=== PATIENT | female | born 1990 | race African-American/Black ===

== ENCOUNTER → 2016-10-18 | Emergency (ER) | payer OTHER ==
[~2016-10-18] MED LIST: ACETAMINOPHEN 325 MG TABLET (FP) ONE; ACETAMINOPHEN 325 MG TABLET (FP) PO ONE
--- NOTE | 2016-10-18 01:48 | PDOC ---
Suture Removal/Wound Check HPI - History of Present Illness Chief Complaint: Laceration Stated Complaint: BLEEDING - ARM STITCHES Time Seen by Provider: 10/18/16 01:32 History Source: Yes: Patient Treated at: Other ED ([facility] ED on 10/17/2013) Date of Last ED visit: 10/17/16 - Previous ED Treatment Type of procedure performed on last visit: Yes: Laceration Repair Tetanus Immunization: Yes: Last Tetanus <5 years ago Antibiotics Prescribed: No - Onset of Previous Treatment Timing/Duration/Severity of Onset: reports: Prior to presentation Comment:: 10/18/16 01:47 s/p laceration repair to right forearm yesterday in [facility] ER. today noted to have bleeding . wound assessed no evisceration noted. pressure dressing applied. Past History - Past Medical History Allergies/Adverse Reactions: Allergies No Known Allergies Allergy (Verified 03/31/13 13:28) Home Medications: Ambulatory Orders NK [No Known Home Medication] 05/20/16 Surgical History: Yes: No Surgical History - Reproductive History LMP: 02/01/13 : 1 Para: 1 Spontaneous : 0 Tubal Ligation: No Hx Endometriosis: No Hx PID: No Hx Polycystic Ovaries: No Hx Ectopic : No Hx Cervical Cancer: No Hx Dysfunctional Uterine Bleeding: No Hx Ovarian Cancer: No Hx Endometrial Cancer: No - Immunization History Immunizations Up to Date: Yes Tetanus Status: Less than 5 years - Social History Smoking History: Yes Smoking Status: Current some day smoker Number of Ciarettes Per Day: 0 Alcohol Use: none Drug Use: none Suture Removal/Wound Check PE - Physical Exam Laceration/Wound Check Symptoms: reports: Bleeding Comments: 10/18/16 01:49 right forearm sutures bleeding noted in between. Location of Laceration/Wound: right: Forearm *Review of Systems - Review of Systems Able to Perform ROS?: Yes Constitutional: No: Symptoms Reported, See HPI, Chills, Diaphoresis, Fever, Loss of Appetite, Malaise, Night Sweats, Weakness, Weight Stable, Unintentional Wgt. Loss, Unexplained wgt Loss, Other Medical Decision Making - Medical Decision Making 10/18/16 01:51 pressure dressing applied. *DC/Admit/Observation/Transfer Diagnosis at time of Disposition: Laceration of forearm, right Qualifiers: Encounter type: subsequent encounter Qualified Code(s): S51.633G - Laceration without foreign body of right forearm, subsequent encounter - Discharge Dispostion Disposition: HOME - Patient Instructions Printed Discharge Instructions: Laceration Repair Additional Instructions: sutures to be removed in 7-10 days. check wound for increased redness, pain, pus drainage fever. follow up with your doctor in 1-2 days for a wound check.
[2016-10-18 01:58] VITALS: BP 104/71; PULSE 70; TEMP 97.7; BMI 29.2
== END | disposition home or self-care (01) ==
LOC: JER 01:05
DX: S51.811D Laceration without foreign body of right forearm, subsequent encounter (principal); X58.XXXD Exposure to other specified factors, subsequent encounter
CPT/HCPCS: 99281-25

== ENCOUNTER 2017-04-19 00:05 | Emergency (ER) | payer OTHER ==
[2017-04-19 00:19] VITALS: BP 105/75; PULSE 85; TEMP 100.1; BMI 25.7
--- NOTE | 2017-04-19 01:46 | PDOC ---
History of Present Illness - General History Source: Patient - History of Present Illness Initial Comments: 04/19/17 02:21 26-year-old female with no medical history presents to the emergency department with her fianc complaining of left lower second and third molar toothache times one week. Patient states she went to see a dentist 1 week ago and has an appointment with an oral surgeon in 3 days for tooth extraction. Patient denies fever, chills, trismus, difficulty swallowing, neck pains, nausea or vomiting. Pain is described as 6/10 achy nonradiating intermittent discomfort which is exacerbated with cold fluids. Pain is alleviated with Motrin. <Zane Moya - Last Filed: 04/19/17 02:21> <Wesley Anglin - Last Filed: 04/20/17 08:01> - General Chief Complaint: Toothache Stated Complaint: TOOTHACHE Time Seen by Provider: 04/19/17 00:24 Past History - Past Medical History Asthma: Yes - Reproductive History (#): 3 Para: 2 Cervical CA: No Dysfunctional Uterine Bleeding: No Ectopic : No Endometrial CA: No Polycystic Ovaries: No Spontaneous : 0 - Immunization History Td Vaccination: Yes Immunization Up to Date: Yes - Suicide/Smoking/Psychosocial Hx Smoking Status: Yes Smoking History: Never smoked Have you smoked in the past 12 months: No Number of Cigarettes Smoked Daily: 0 Information on smoking cessation initiated: No Hx Alcohol Use: No Drug/Substance Use Hx: No <Zane Moya - Last Filed: 04/19/17 02:21> <Wesley Anglin - Last Filed: 04/20/17 08:01> - Past Medical History Allergies/Adverse Reactions: Allergies Allergy/AdvReac Type Severity Reaction Status Date / Time No Known Allergies Allergy Verified 04/19/17 00:17 Home Medications: Ambulatory Orders Acetaminophen W/ Codeine #3 [Tylenol # 3 -] 1 tab PO Q6H #12 tablet MDD 4 Amoxicillin - [Amoxicillin 500mg Capsule -] 500 mg PO TID #21 capsule 04/19/17 Review of Systems - Review of Systems Able to Perform ROS?: Yes Comments:: 04/19/17 02:22 CONSTITUTIONAL: Absent: fever, chills, diaphoresis, generalized weakness, malaise, loss of appetite HEENT: Absent: rhinorrhea, nasal congestion, throat pain, throat swelling, difficulty swallowing, mouth swelling, ear pain, eye pain, visual Changes +left lower 2nd and 3rd molar toothache Is the patient limited Vincentian proficient: No <Zane Moya - Last Filed: 04/19/17 02:21> *Physical Exam - Vital Signs Last Vital Signs Temp Pulse Resp BP Pulse Ox 100.1 F H 85 20 105/75 99 04/19/17 00:18 04/19/17 00:18 04/19/17 00:18 04/19/17 00:18 04/19/17 00:18 - Physical Exam Comments: 04/19/17 02:22 GENERAL: Well developed, well nourished. Awake and alert. No acute distress. HEENT: +Left lower 2nd and 3rd molar toothache on percussion. Neg abscess Normocephalic, atraumatic. PERRLA, EOMI. No conjunctival pallor. Sclera are non- icteric. Moist mucous membranes. Oropharynx is clear. NECK: Supple. Full ROM. No JVD. Carotid pulses 2+ and symmetric, without bruits. No thyromegaly. No lymphadenopathy. <Zane Moya - Last Filed: 04/19/17 02:21> - Vital Signs Last Vital Signs Temp Pulse Resp BP Pulse Ox 100.1 F H 85 20 105/75 99 04/19/17 00:18 04/19/17 00:18 04/19/17 00:18 04/19/17 00:18 04/19/17 00:18 <Wesley Anglin - Last Filed: 04/20/17 08:01> ED Treatment Course - Medications Given in the ED: ED Medications Discontinued Medications Generic Name Dose Route Start Last Admin Trade Name Freq PRN Reason Stop Dose Admin Amoxicillin 500 mg 04/19/17 02:29 04/19/17 02:37 Amoxicillin - PO 04/19/17 02:30 500 mg ONCE ONE Administration <Wesley Anglin - Last Filed: 04/20/17 08:01> Medical Decision Making - Medical Decision Making 04/20/17 08:01 The patient was seen and evaluated in conjunction with LAVINIA Moya under my direct supervision, ancillary studies were reviewed. I agree with the plan as outlined by LAVINIA Moya. <Wesley Anglin - Last Filed: 04/20/17 08:01> *DC/Admit/Observation/Transfer - Discharge Dispostion Admit: No <Zane Moya - Last Filed: 04/19/17 02:21> <Keven Anglinan - Last Filed: 04/20/17 08:01> Diagnosis at time of Disposition: Toothache - Discharge Dispostion Disposition: HOME Condition at time of disposition: Stable - Prescriptions Prescriptions: Amoxicillin - [Amoxicillin 500mg Capsule -] 500 mg PO TID #21 capsule Acetaminophen W/ Codeine #3 [Tylenol # 3 -] 1 tab PO Q6H #12 tablet MDD 4 - Referrals Referrals: Nils Linares [Primary Care Provider] - - Patient Instructions Printed Discharge Instructions: DI for Dental Pain Additional Instructions: Follow up with your dentist as scheduled for Friday/ days from now Take tylenol or motrin as needed for mild pain Rx: Tylenol #3 take 1 tablet by mouth every 6 hours as needed for severe pain Return to the ER for severe/persistent/worsening symptoms
[2017-04-19] MEDS ORDERED: AMOXICILLIN 500 MG CAPSULE (FP) PO ONE (02:29)
[2017-04-19] MEDS ORDERED: AMOXICILLIN 500 MG CAPSULE (FP) ONE (02:30)
== END 2017-04-19 02:34 | disposition home or self-care (01) ==
LOC: JER 00:05
DX: K08.89 Other specified disorders of teeth and supporting structures (principal)
CPT/HCPCS: 84703; 99281-25

== ENCOUNTER 2017-07-31 18:49 | Emergency (ER) | payer OTHER ==
[2017-07-31] MEDS ORDERED: ACETAMINOPHEN 500 MG TABLET (FP) PO ONE (18:58)
--- NOTE | 2017-07-31 18:58 | PDOC ---
Rapid Medical Evaluation Time Seen by Provider: 07/31/17 18:55 Medical Evaluation: Allergies Allergy/AdvReac Type Severity Reaction Status Date / Time No Known Allergies Allergy Verified 04/19/17 00:17 07/31/17 18:55 I have performed a brief in person evaluation of this patient. The patient presents with chief complaint of : lower abd pain , with vaginal bleeding and clots. started about 25 minutes ago. LMP May. Pertinent PE findings: stable vitals, c/o pain will order tylenol for now until is ruled out I have ordered the following: urine , labs, tylenol The patient will proceed to the ER for further evaluation.
[2017-07-31 18:59] VITALS: BP 116/70; PULSE 84; TEMP 98.5; BMI 30.9
== END 2017-07-31 20:04 | disposition left against medical advice (07) ==
LOC: JER 18:49
DX: R10.30 Lower abdominal pain, unspecified (principal); N93.8 Other specified abnormal uterine and vaginal bleeding
CPT/HCPCS: 84703; 99281-25

== ENCOUNTER 2018-09-26 16:59 | Emergency (ER) | payer OTHER ==
[2018-09-26 17:18] VITALS: BP 104/70; PULSE 80; TEMP 98.2; BMI 31.1
--- NOTE | 2018-09-26 18:00 | PDOC ---
History of Present Illness - General Chief Complaint: Pain Stated Complaint: ABDOMINAL PAIN Time Seen by Provider: 09/26/18 17:40 History Source: Patient Past History - Past Medical History Allergies/Adverse Reactions: Allergies Allergy/AdvReac Type Severity Reaction Status Date / Time No Known Allergies Allergy Verified 09/26/18 17:13 Home Medications: Ambulatory Orders NK [No Known Home Medication] 09/26/18 Asthma: Yes COPD: No - Reproductive History (#): 3 Para: 2 Cervical CA: No Dysfunctional Uterine Bleeding: No Ectopic : No Endometrial CA: No Polycystic Ovaries: No Spontaneous : 0 - Immunization History Td Vaccination: Yes Immunization Up to Date: Yes - Suicide/Smoking/Psychosocial Hx Smoking Status: Yes Smoking History: Never smoked Have you smoked in the past 12 months: Yes Number of Cigarettes Smoked Daily: 5 Hx Alcohol Use: No Drug/Substance Use Hx: No Review of Systems - Review of Systems Constitutional: No: Chills, Fever ABD/GI: Yes: Abdominal cramping. No: Nausea, Vomiting : No: Burning, Dysuria, Discharge, Frequency, Flank Pain, Hematuria *Physical Exam - Vital Signs Last Vital Signs Temp Pulse Resp BP Pulse Ox 98.2 F 80 18 104/70 99 09/26/18 17:13 09/26/18 17:13 09/26/18 17:13 09/26/18 17:13 09/26/18 17:13 - Physical Exam General Appearance: Yes: Appropriately Dressed. No: Apparent Distress HEENT: positive: Normal Voice Neck: positive: Supple Respiratory/Chest: negative: Respiratory Distress Gastrointestinal/Abdominal: positive: Soft. negative: Tender Musculoskeletal: negative: CVA Tenderness Integumentary: positive: Dry, Warm Neurologic: positive: Fully Oriented, Alert, Normal Mood/Affect Moderate Sedation - Procedure Monitoring Vital Signs: Procedure Monitoring Vital Signs Temperature 98.2 F 09/26/18 17:13 Pulse Rate 80 09/26/18 17:13 Respiratory Rate 18 09/26/18 17:13 Blood Pressure 104/70 09/26/18 17:13 O2 Sat by Pulse Oximetry (%) 99 09/26/18 17:13 Medical Decision Making - Medical Decision Making 09/26/18 17:58 28 yo F, h/o chlamydia tx in 2011, , LMP 08/27/18, here w/ lower abd pain that started several weeks ago, mild and constant. States her menses is due and that she had vag bleed this am that already resolved. States she does usually get abd cramps w/ her menses. Not on contraceptives and admits to trying to get now. No discharge, dysuria, n/v/f/c See exam Vag bleed w/ abd cramps ?menses (currently due), r/o preg -upreg -ua 09/26/18 18:54 Upreg neg. UA w/ 3+ LE, no nit. Ucx sent. Pt has no dysuria so will hold off on abx pending ucx. Explained to pt that this might be her menses and to f/u with her DESKTOP PUBLISHING SPECIALIST *DC/Admit/Observation/Transfer Diagnosis at time of Disposition: Vaginal bleeding - Discharge Dispostion Disposition: HOME - Referrals Referrals: Nils Linares [Primary Care Provider] - - Patient Instructions Additional Instructions: Your test is negative here You vaginal bleeding and abdominal cramping might be your menses Please follow up with your DESKTOP PUBLISHING SPECIALIST Return to ED as needed - Post Discharge Activity
[2018-09-26] MEDS ORDERED: IBUPROFEN 400 MG TABLET (FP) PO ONE ×2 (18:10→18:12)
[2018-09-26 18:46] LABS: URINE APPEARANCE CLOUDY; URINE BILIRUBIN NEGATIVE (<2.0 mg/dL); URINE COLOR DKYELLOW; URINE GLUCOSE (UA) NEGATIVE (NEGATIVE); URINE KETONE TRACE (NEGATIVE); URINE LEUK ESTERASE 2+ (NEGATIVE); URINE NITRITE NEGATIVE (NEGATIVE); URINE PROTEIN 1+ (NEGATIVE); URINE UROBILINOGEN 4.0 E.U/dl mg/dL (0.2-1.0)
[2018-09-26 18:48] LABS: HCG,QUALITATIVE URINE Negative
[2018-09-26 19:16] LABS: EPI CELLS FEW /HPF (FEW); URINE BACTERIA RARE /hpf (NONE SEEN); URINE MUCUS MANY
== END 2018-09-26 19:06 | disposition home or self-care (01) ==
LOC: JER 16:59
DX: N93.8 Other specified abnormal uterine and vaginal bleeding (principal)
CPT/HCPCS: 36415; 81003; 81015; 84703; 87491; 87591; 99283-25

== ENCOUNTER 2019-02-09 14:14 | Emergency (ER) | payer OTHER ==
--- NOTE | 2019-02-09 14:19 | PDOC ---
Rapid Medical Evaluation Chief Complaint: Pain, Acute Time Seen by Provider: 02/09/19 14:18 Medical Evaluation: Allergies Allergy/AdvReac Type Severity Reaction Status Date / Time No Known Allergies Allergy Verified 02/09/19 14:17 02/09/19 14:18 I have performed a brief in-person evaluation of this patient. The patient presents with a chief complaint of: neck pain with vomiting for 2 days Pertinent physical exam findings: VSS. AF. No meningismus. I have ordered the following: tylenol, zofran The patient will proceed to the ED for further evaluation. Discharge Disposition - Diagnosis Neck pain - Referrals - Patient Instructions - Post Discharge Activity
[2019-02-09] MEDS ORDERED: ACETAMINOPHEN 500 MG TABLET (FP) PO ONE (14:20)
[2019-02-09] MEDS ORDERED: ONDANSETRON *ODT* 4 MG TABLET SL ONE (14:20)
[2019-02-09 14:28] VITALS: BP 116/73; PULSE 81; TEMP 97.9; BMI 30.8
--- NOTE | 2019-02-09 14:44 | PDOC ---
History of Present Illness - General Chief Complaint: Pain, Acute Stated Complaint: 6WKS,ABD PAIN Time Seen by Provider: 02/09/19 14:18 History Source: Patient Exam Limitations: No Limitations Past History - Travel Traveled outside of the country in the last 30 days: No Close contact w/someone who was outside of country & ill: No - Past Medical History Allergies/Adverse Reactions: Allergies Allergy/AdvReac Type Severity Reaction Status Date / Time No Known Allergies Allergy Verified 02/09/19 14:17 Home Medications: Ambulatory Orders Azithromycin 1 gm PO ONCE #1 packet 09/29/18 Cephalexin Monohydrate [Keflex -] 500 mg PO BID #20 capsule 02/09/19 Doxylamine Succinate/Vit B6 [Sharona Leyva 10-10 mg Tablet] 1 each PO ACHS #14 tablet. 02/09/19 Asthma: Yes COPD: No - Reproductive History (#): 3 Para: 2 Cervical CA: No Dysfunctional Uterine Bleeding: No Ectopic : No Endometrial CA: No Polycystic Ovaries: No Spontaneous : 0 - Immunization History Td Vaccination: Yes Immunization Up to Date: Yes - Suicide/Smoking/Psychosocial Hx Smoking Status: Yes Smoking History: Never smoked Have you smoked in the past 12 months: Yes Number of Cigarettes Smoked Daily: 5 Hx Alcohol Use: No Drug/Substance Use Hx: No Review of Systems - Review of Systems Able to Perform ROS?: Yes Comments:: 02/09/19 18:40 CONSTITUTIONAL: Absent: fever, chills, diaphoresis, generalized weakness, malaise, loss of appetite HEENT: Absent: rhinorrhea, nasal congestion, throat pain, throat swelling, difficulty swallowing, mouth swelling, ear pain, eye pain, visual Changes CARDIOVASCULAR: Absent: chest pain, loss of consciousness, palpitations, irregular heart rate, peripheral edema RESPIRATORY: Absent: cough, shortness of breath, dyspnea with exertion, orthopnea, wheezing, stridor, hemoptysis GASTROINTESTINAL: Present: abdominal pain, nausea, vomiting Absent: abdominal distension, diarrhea , constipation, melena, hematochezia GENITOURINARY: Absent: dysuria, frequency, urgency, hesitancy, hematuria, flank pain, genital pain MUSCULOSKELETAL: Absent: myalgia, arthralgia, joint swelling SKIN: Absent: rash, itching, pallor HEMATOLOGIC/IMMUNOLOGIC: Absent: easy bleeding, easy bruising, lymphadenopathy, frequent infections ENDOCRINE: Absent: unexplained weight gain, unexplained weight loss, heat intolerance, cold intolerance NEUROLOGIC: Absent: headache, focal weakness or paresthesias, dizziness, unsteady gait, seizure, mental status changes, bladder or bowel incontinence PSYCHIATRIC: Absent: anxiety, depression, suicidal or homicidal ideation, hallucinations. Is the patient limited Sinhala proficient: No *Physical Exam - Vital Signs Last Vital Signs Temp Pulse Resp BP Pulse Ox 97.9 F 81 18 116/73 98 02/09/19 14:18 02/09/19 14:18 02/09/19 14:18 02/09/19 14:18 02/09/19 14:18 - Physical Exam Comments: 02/09/19 18:41 GENERAL: Well developed, well nourished. Awake and alert. No acute distress. HEENT: Normocephalic, atraumatic. PERRLA, EOMI. No conjunctival pallor. Sclera are non- icteric. Moist mucous membranes. Oropharynx is clear. NECK: Supple. Full ROM. No JVD. Carotid pulses 2+ and symmetric, without bruits. No thyromegaly. No lymphadenopathy. CARDIOVASCULAR: Regular rate and rhythm. No murmurs, rubs, or gallops. Distal pulses are 2+ and symmetric. PULMONARY: No evidence of respiratory distress. Lungs clear to auscultation bilaterally. No wheezing, rales or rhonchi. ABDOMINAL: TTP of the suprapubic region. Soft. Non-tender. Non-distended. No rebound or guarding. No organomegaly. Normoactive bowel sounds. MUSCULOSKELETAL Normal range of motion at all joints. No bony deformities or tenderness. No CVA tenderness. EXTREMITIES: No cyanosis. No clubbing. No edema. No calf tenderness. SKIN: Warm and dry. Normal capillary refill. No rashes. No jaundice. NEUROLOGICAL: Alert, awake, appropriate. Cranial nerves 2-12 intact. No deficits to light touch and temperature in face, upper extremities and lower extremities. No motor deficits in the in face, upper extremities and lower extremities. Normoreflexic in the upper and lower extremities. Normal speech. Toes are down- going bilaterally. Gait is normal without ataxia. PSYCHIATRIC: Cooperative. Good eye contact. Appropriate mood and affect. ED Treatment Course - LABORATORY CBC & Chemistry Diagram: 02/09/19 16:35 02/09/19 16:35 Medical Decision Making - Medical Decision Making 02/09/19 18:41 The patient is a 28-year-old female, , currently 6 weeks last menstrual cycle 12/26/18, presents to the ER today with 3 days of nausea, vomiting and lower abdominal pain. She states that she's been unable to keep anything down last 3 days including water. She states that she is currently nauseous. She also admits to lower abdominal pain. Denies urinary symptoms. She states that she did not have morning sickness with her other 2 pregnancies. Denies fevers, chills, chest pain, shortness of breath, diarrhea, constipation and vaginal bleeding or discharge. A/P: Hyperemesis gravidarum On exam patient with suprapubic tenderness, otherwise abdomen is benign. Pelvic exam deferred given lack of vaginal bleeding Basic labs, urine ordered Transvaginal ultrasound ordered given lower abdominal pain. Urine is positive for infection. Also notes 4+ ketones indicating hydration Lab work is otherwise benign. Patient currently in ultrasound. She reports feeling better after Zofran, off her meds and fluids. Sign out given to THALIA Banerjee. If ultrasound is normal patient will go home with antibiotics for her UTI and antinausea medications. *DC/Admit/Observation/Transfer Diagnosis at time of Disposition: Hyperemesis gravidarum UTI (urinary tract infection) Qualifiers: Urinary tract infection type: acute cystitis Hematuria presence: without hematuria Qualified Code(s): N30.00 - Acute cystitis without hematuria - Discharge Dispostion Disposition: HOME - Prescriptions Prescriptions: Cephalexin Monohydrate [Keflex -] 500 mg PO BID #20 capsule Doxylamine Succinate/Vit B6 [Diclegis Dr 10-10 mg Tablet] 1 each PO ACHS #14 tablet.dr - Referrals Referrals: Elli Michel [Primary Care Provider] - - Patient Instructions Printed Discharge Instructions: DI for Hyperemesis Gravidarum Additional Instructions: drink plenty of fluids. Take diclegis prescribed this is for related nausea and vomiting. follow-up with the SOFTWARE CLERK as soon as possible. Return to the emergency room for any worsening symptoms. - Post Discharge Activity Forms/Work/School Notes: Back to Work, Parent(s) Back to Work Note
[2019-02-09] MEDS ORDERED: ACETAMINOPHEN 1000 MG/100 ML VIAL (NON FORMULARY) IVPB ONE (14:45)
[2019-02-09] MEDS ORDERED: SODIUM CHLORIDE 1,000 ML IV STA ×2 (14:45→18:08)
[2019-02-09] MEDS ORDERED: ONDANSETRON 4 MG/2 ML VIAL IVPUSH ONE (14:45)
[2019-02-09] MEDS ORDERED: ACETAMINOPHEN INJECTION 0 ML IVPB ONE (16:24)
[2019-02-09] MEDS ORDERED: ONDANSETRON 4 MG/2 ML VIAL ONE ×2 (16:24→16:47)
[2019-02-09] MEDS ORDERED: ACETAMINOPHEN INJECTION 100 ML IVPB ONE (16:47)
[2019-02-09 17:37] LABS: BASO % 0.7 % (0-2.0); EOS % 1.3 % (0-4.5); HEMATOCRIT 35.8 % (32.4-45.2); LYMPH % 30.7 % (8-40); MCHC 33.6 g/dl (32.0-36.0); MEAN CELL VOLUME 86.4 fl (80-96); MEAN PLT VOLUME 7.5 fl (7.5-11.1); NEUT % 58.3 % (42.8-82.8); PLATELET COUNT 368 K/MM3 (134-434); RBC 4.14 M/mm3 (3.60-5.2); RDW 13.4 % (11.6-15.6); WHITE BLOOD COUNT 7.7 K/mm3 (4.0-10.0)
[2019-02-09 17:42] LABS: ALBUMIN 4.5 g/dl (3.4-5.0); BILIRUBIN,TOTAL 0.7 mg/dL (0.2-1); BLOOD UREA NITROGEN 7.3 mg/dL (7-18); CALCIUM 9.4 mg/dL (8.5-10.1); CREATININE 0.6 mg/dL (0.55-1.3); POTASSIUM 3.7 mmol/L (3.5-5.1); TOT PROT 7.6 g/dl (6.4-8.2)
[2019-02-09 18:00] LABS: EPI CELLS 4.5 /HPF (0-5/HPF); HYALINE CASTS 40 /lpf (0-8); URINE APPEARANCE CLEAR; URINE BACTERIA 120.8 /hpf (NEGATIVE); URINE BILIRUBIN NEGATIVE (NEGATIVE); URINE COLOR DK YELLOW; URINE GLUCOSE (UA) NEGATIVE (NEGATIVE); URINE KETONE 4+ (NEGATIVE); URINE LEUK ESTERASE 1+ (NEGATIVE); URINE NITRITE NEGATIVE (NEGATIVE); URINE PROTEIN 1+ (NEGATIVE); URINE RBC 1 /hpf (0-4); URINE WBC 39 /hpf (0-5)
--- NOTE | 2019-02-09 19:35 | PDOC ---
*Physical Exam - Vital Signs Last Vital Signs Temp Pulse Resp BP Pulse Ox 97.9 F 81 18 116/73 98 02/09/19 14:18 02/09/19 14:18 02/09/19 14:18 02/09/19 14:18 02/09/19 14:18 ED Treatment Course - LABORATORY CBC & Chemistry Diagram: 02/09/19 16:35 02/09/19 16:35 - ADDITIONAL ORDERS Additional order review: Laboratory Results 02/09/19 02/09/19 02/09/19 16:35 16:35 14:32 Sodium 136 Potassium 3.7 Chloride 102 Carbon Dioxide 24 Anion Gap 10 BUN 7.3 Creatinine 0.6 Est GFR (CKD-EPI)AfAm 144.78 Est GFR (CKD-EPI)NonAf 124.92 Random Glucose 66 L Calcium 9.4 Total Bilirubin 0.7 AST 16 ALT 14 Alkaline Phosphatase 49 Total Protein 7.6 Albumin 4.5 Beta HCG, Quant 25232.4 Cancelled Urine Color Dk yellow Urine Appearance Clear Urine pH 6.0 Ur Specific [place] 1.038 H Urine Protein 1+ H Urine Glucose (UA) Negative Urine Ketones 4+ H Urine Blood Negative Urine Nitrite Negative Urine Bilirubin Negative Urine Urobilinogen 1.0 Ur Leukocyte Esterase 1+ H Urine WBC (Auto) 39 Urine RBC (Auto) 1 Urine Casts (Auto) 40 U Pathogenic Cast Auto None U Epithel Cells (Auto) 4.5 Urine Bacteria (Auto) 120.8 02/09/19 16:35 RBC 4.14 MCV 86.4 MCHC 33.6 RDW 13.4 MPV 7.5 Neutrophils % 58.3 Lymphocytes % 30.7 Monocytes % 9.0 D Eosinophils % 1.3 Basophils % 0.7 - Medications Given in the ED: ED Medications Discontinued Medications Generic Name Dose Route Start Last Admin Trade Name Freq PRN Reason Stop Dose Admin Acetaminophen 975 mg 02/09/19 14:20 02/09/19 18:46 Tylenol - PO 02/09/19 14:21 Not Given ONCE ONE Acetaminophen 1,000 mg 02/09/19 14:45 02/09/19 16:30 Ofirmev Injection - IVPB 02/09/19 14:46 1,000 mg ONCE ONE Administration Sodium Chloride 1,000 mls @ 1,000 mls/hr 02/09/19 14:45 02/09/19 16:30 Normal Saline - IV 02/09/19 15:44 1,000 mls/hr ASDIR STA Administration Sodium Chloride 1,000 mls @ 1,000 mls/hr 02/09/19 18:08 02/09/19 18:45 Normal Saline - IV 02/09/19 19:07 Not Given ASDIR STA Ondansetron HCl 4 mg 02/09/19 14:20 02/09/19 18:47 Zofran Odt - SL 02/09/19 14:21 Not Given ONCE ONE Ondansetron HCl 4 mg 02/09/19 14:45 02/09/19 16:30 Zofran Injection IVPUSH 02/09/19 14:46 4 mg ONCE ONE Administration Medical Decision Making - Medical Decision Making 02/09/19 19:36 patient is tolerating Po now. early + UA. TVUS pending. will treat the UTI 02/09/19 19:36 TVUS single viable IUP hRT 96bpm. + hemorrhagic cyst no torsion. *DC/Admit/Observation/Transfer Diagnosis at time of Disposition: Hyperemesis gravidarum UTI (urinary tract infection) Qualifiers: Urinary tract infection type: acute cystitis Hematuria presence: without hematuria Qualified Code(s): N30.00 - Acute cystitis without hematuria - Discharge Dispostion Disposition: HOME - Prescriptions Prescriptions: Cephalexin Monohydrate [Keflex -] 500 mg PO BID #20 capsule Doxylamine Succinate/Vit B6 [Diclegis Dr 10-10 mg Tablet] 1 each PO ACHS #14 tablet.dr - Referrals Referrals: Elli Michel [Primary Care Provider] - - Patient Instructions Printed Discharge Instructions: DI for Hyperemesis Gravidarum Additional Instructions: drink plenty of fluids. Take diclegis prescribed this is for related nausea and vomiting. follow-up with the [facility] as soon as possible. Return to the emergency room for any worsening symptoms. - Post Discharge Activity Forms/Work/School Notes: Back to Work, Parent(s) Back to Work Note
[2019-02-09] MEDS ORDERED: CEPHALEXIN MONOHYDRATE 500 MG CAPSULE (UD) PO ONE (19:37)
[2019-02-09] MEDS ORDERED: CEPHALEXIN MONOHYDRATE 500 MG CAPSULE (UD) ONE (20:17)
== END 2019-02-09 20:10 | disposition home or self-care (01) ==
LOC: JER 14:14
PROC: 3E0337Z Introduction of Electrolytic and Water Balance Substance into Peripheral Vein, Percutaneous Approach (ICD-10-PCS; principal; 2019-02-09)
PROC: 3E033GC Introduction of Other Therapeutic Substance into Peripheral Vein, Percutaneous Approach (ICD-10-PCS; 2019-02-09)
PROC: 3E033NZ Introduction of Analgesics, Hypnotics, Sedatives into Peripheral Vein, Percutaneous Approach (ICD-10-PCS; 2019-02-09)
PROC: 3E0337Z Introduction of Electrolytic and Water Balance Substance into Peripheral Vein, Percutaneous Approach (ICD-10-PCS; 2019-02-09)
DX: O26.891 Other specified pregnancy related conditions, first trimester (principal); O21.0 Mild hyperemesis gravidarum; O23.11 Infections of bladder in pregnancy, first trimester; N30.00 Acute cystitis without hematuria; Z3A.01 Less than 8 weeks gestation of pregnancy
CPT/HCPCS: 36415; 76817-TC; 80053; 81003; 84702; 85025; 87086; 96360; 96374; 96375; 99281-25; J0131; J7030

== ENCOUNTER 2019-03-03 21:24 | Emergency (ER) | payer OTHER ==
[2019-03-03 21:36] VITALS: BP 109/69; PULSE 89; TEMP 98.4; BMI 30.8
--- NOTE | 2019-03-03 21:37 | PDOC ---
Rapid Medical Evaluation Chief Complaint: Pain Time Seen by Provider: 03/03/19 21:34 Medical Evaluation: Allergies Allergy/AdvReac Type Severity Reaction Status Date / Time No Known Allergies Allergy Verified 02/09/19 14:17 03/03/19 21:34 I have performed a brief in-person evaluation of this patient. The patient presents with a chief complaint of: LMP 6/15 @ 9wks present with complains of lower back and suprapubic discomfort. Denies dysuria, urgency or burning with urination. Denies fever, chills, N/V. Denies vaginal bleeding or d/c Pertinent physical exam findings: A&O x 3 in NAD I have ordered the following: UA, uCX. cbc, cmp The patient will proceed to the ED for further evaluation. Discharge Disposition - Diagnosis Abdominal pain - Discharge Dispostion Condition at time of disposition: Stable - Referrals - Patient Instructions - Post Discharge Activity
[2019-03-03 23:06] LABS: BASO % 0.9 % (0-2.0); EOS % 2.1 % (0-4.5); HEMATOCRIT 33.2 % (32.4-45.2); HEMOGLOBIN 10.9 GM/dL (10.7-15.3); LYMPH % 27.4 % (8-40); MCH 28.8 pg (25.7-33.7); MCHC 32.7 g/dl (32.0-36.0); MEAN CELL VOLUME 87.8 fl (80-96); MEAN PLT VOLUME 6.5 fl (7.5-11.1); MONO % 6.6 % (3.8-10.2); PLATELET COUNT 354 K/MM3 (134-434); RBC 3.78 M/mm3 (3.60-5.2); RDW 13.9 % (11.6-15.6); WHITE BLOOD COUNT 11.8 K/mm3 (4.0-10.0)
[2019-03-03] MEDS ORDERED: ACETAMINOPHEN 500 MG TABLET (FP) PO ONE (23:07)
--- NOTE | 2019-03-03 23:07 | PDOC ---
History of Present Illness - General Chief Complaint: Pain Stated Complaint: PAIN Time Seen by Provider: 03/03/19 21:34 History Source: Patient Exam Limitations: No Limitations - History of Present Illness Initial Comments: 03/03/19 23:38 HISTORY OF PRESENT ILLNESS: This a 28-year-old the last menstrual period presents emergency department for evaluation of her abdominal and back pain which started today. Patient denies any vaginal bleeding or vaginal discharge. Patient reports fullness with urination with slight pressure but denies any dysuria, urinary frequency or hematuria. No recent travel or sick contacts. PAST MEDICAL HISTORY: Denies past medical history SURGICAL HISTORY: Denies ALLERGIES: No known drug allergies REVIEW OF SYSTEMS General/Constitutional: Denies fever or chills. Denies weakness, weight change. HEENT: Denies change in vision. Denies ear pain or discharge. Denies sore throat. Cardiovascular: Denies chest pain or shortness of breath. Respiratory: Denies cough, wheezing, or hemoptysis. Gastrointestinal: see HPI Genitourinary: Denies dysuria, frequency, or change in urination. Musculoskeletal: Denies joint or muscle swelling or pain. Denies neck or back pain. Skin and breasts: Denies rash or easy bruising. Neurologic: Denies headache, vertigo, loss of consciousness, or loss of sensation. Psychiatric: Denies depression or anxiety. Endocrine: Denies increased thirst. Denies abnormal weight change. Hematologic/Lymphatic: Denies anemia, easy bleeding, or history of blood clots. Allergic/Immunologic: Denies hives or skin allergy. Denies latex allergy. PHYSICAL EXAM General Appearance: Well-appearing, appropriately dressed. No apparent distress , no intoxication. Respiratory/Chest: Lungs CTAB. No shortness of breath, chest tenderness, respiratory distress, accessory muscle use. No crackles, rales, rhonchi, stridor , wheezing, dullness Cardiovascular: RRR. S1, S2. No JVD, murmur, bradycardia, tachycardia. Vascular Pulses: Dorsalis-Pedis (R): 2+, Dorsalis-Pedis (L): 2+ Gastrointestinal/Abdominal: Normal bowel sounds. Abdomen soft, non-distended. No tenderness or rebound tenderness. No organomegaly, pulsatile mass, guarding, hernia, hepatomegaly, splenomegaly. Lymphatic: No adenopathy, tenderness. Past History - Past Medical History Allergies/Adverse Reactions: Allergies Allergy/AdvReac Type Severity Reaction Status Date / Time No Known Allergies Allergy Verified 02/09/19 14:17 Home Medications: Ambulatory Orders Azithromycin 1 gm PO ONCE #1 packet 09/29/18 Doxylamine Succinate/Vit B6 [Sharona Leyva 10-10 mg Tablet] 1 each PO ACHS #14 tablet. 02/09/19 Cephalexin Monohydrate [Keflex -] 500 mg PO BID #20 capsule 03/04/19 Asthma: Yes COPD: No - Reproductive History (#): 3 Para: 2 Cervical CA: No Dysfunctional Uterine Bleeding: No Ectopic : No Endometrial CA: No Polycystic Ovaries: No Spontaneous : 0 - Immunization History Td Vaccination: Yes Immunization Up to Date: Yes - Suicide/Smoking/Psychosocial Hx Smoking Status: Yes Smoking History: Former smoker Have you smoked in the past 12 months: Yes Number of Cigarettes Smoked Daily: 5 If you are a former smoker, when did you quit?: 12/30 Information on smoking cessation initiated: No Hx Alcohol Use: No Drug/Substance Use Hx: No *Physical Exam - Vital Signs Last Vital Signs Temp Pulse Resp BP Pulse Ox 98.4 F 89 18 109/69 100 03/03/19 21:34 03/03/19 21:34 03/03/19 21:34 03/03/19 21:34 03/03/19 21:34 ED Treatment Course - LABORATORY CBC & Chemistry Diagram: 03/03/19 23:00 03/03/19 23:00 Medical Decision Making - Medical Decision Making 03/03/19 23:39 A/P: 28-year-old woman with lower abdominal and back pain starting this morning Abdomen soft nontender nondistended labs Urinalysis, urine culture TVUS Reassess 03/04/19 01:18 Transvaginal ultrasound as read by imaging cushion gum applicator: Single live intrauterine with gestational age 9 weeks 5 days. heart rate 174. No left ovarian torsion. Right ovary obscured by bowel gas. Urinalysis notable for urinary tract infection. 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 *DC/Admit/Observation/Transfer Diagnosis at time of Disposition: UTI (urinary tract infection) Qualifiers: Urinary tract infection type: acute cystitis Hematuria presence: without hematuria Qualified Code(s): N30.00 - Acute cystitis without hematuria - Discharge Dispostion Disposition: HOME Condition at time of disposition: Stable Decision to Admit order: No - Prescriptions Prescriptions: Cephalexin Monohydrate [Keflex -] 500 mg PO BID #20 capsule - Referrals Referrals: Ratna Hendrix CNM [Primary Care Provider] - - Patient Instructions Additional Instructions: Rest, drink lots of fluids: Teas, water, soups Avoid contact with others until fevers and symptoms resolved Lots of handwashing and good hygiene Continue [id number] medications for symptomatic relief Tylenol or Motrin for fever and pain Continue all of antibiotics until completed Followup with private physician in one week for repeat urinalysis/reevaluation Return to emergency department for worsened symptoms, fevers, dehydration daylin Anthony muchos lquidos: Ts, agua, sopas Evite el contacto con otros hasta que las fiebres y los sntomas se resuelvan Un montn de lavado de xiao y buena higiene Contine los medicamentos sin receta para el alivio sintomtico Tylenol o Motrin para la fiebre y el dolor Continuar todos los antibiticos hasta completarse Seguimiento con mdico privado en quang semana para repetir anlisis de orina / reevaluacin Volver al servicio de urgencias por sntomas empeorados, fiebres, deshidratacin - Post Discharge Activity
--- NOTE | 2019-03-03 23:11 | PDOC ---
*Physical Exam - Vital Signs Last Vital Signs Temp Pulse Resp BP Pulse Ox 98.4 F 89 18 109/69 100 03/03/19 21:34 03/03/19 21:34 03/03/19 21:34 03/03/19 21:34 03/03/19 21:34 - Physical Exam Comments: 03/03/19 23:11 The patient was examined by [TOXICS PROGRAM OFFICER Arsen] under my direct supervision. I personally evaluated the patient. I concur with the above findings and the plan of care. ED Treatment Course - LABORATORY CBC & Chemistry Diagram: 03/03/19 23:00 03/03/19 23:00 *DC/Admit/Observation/Transfer Diagnosis at time of Disposition: Abdominal pain - Discharge Dispostion Condition at time of disposition: Stable - Referrals Referrals: Ratna Hendrix CNM [Primary Care Provider] - - Patient Instructions - Post Discharge Activity
[2019-03-03 23:34] LABS: ALBUMIN 3.8 g/dl (3.4-5.0); BILIRUBIN,TOTAL 0.2 mg/dL (0.2-1); BLOOD UREA NITROGEN 9.4 mg/dL (7-18); CREATININE 0.6 mg/dL (0.55-1.3); POTASSIUM 4.2 mmol/L (3.5-5.1); TOT PROT 6.8 g/dl (6.4-8.2)
[2019-03-03] MEDS ORDERED: ACETAMINOPHEN 325 MG TABLET (FP) ONE (23:40)
[2019-03-04 00:06] LABS: URINE APPEARANCE TURBID; URINE BILIRUBIN NEGATIVE (NEGATIVE); URINE COLOR YELLOW; URINE GLUCOSE (UA) NEGATIVE (NEGATIVE); URINE KETONE NEGATIVE (NEGATIVE)
[2019-03-04 00:07] LABS: EPI CELLS 15.3 /HPF (0-5/HPF); HYALINE CASTS 82.85 /lpf (0-8); URINE BACTERIA 364.2 /hpf (NEGATIVE); URINE LEUK ESTERASE LARGE (NEGATIVE); URINE NITRITE NEGATIVE (NEGATIVE); URINE PROTEIN NEGATIVE (NEGATIVE); URINE RBC 1.8 /hpf (0-4); URINE UROBILINOGEN 0.2 mg/dL (0.2-1.0); URINE WBC 68.1 /hpf (0-5)
== END 2019-03-04 01:52 | disposition home or self-care (01) ==
LOC: JER 21:24
DX: N30.00 Acute cystitis without hematuria (principal); Z3A.09 9 weeks gestation of pregnancy; F17.210 Nicotine dependence, cigarettes, uncomplicated; J45.909 Unspecified asthma, uncomplicated
CPT/HCPCS: 36415; 76801-TC; 80053; 81003; 84702; 85025; 87086; 99283-25

== ENCOUNTER 2019-04-23 12:15 | Emergency (ER) | payer OTHER ==
[2019-04-23 12:38] VITALS: BP 117/79; PULSE 86; TEMP 97.9; BMI 32.8
[2019-04-23] MEDS ORDERED: ACETAMINOPHEN 500 MG TABLET (FP) PO ONE (13:22)
[2019-04-23] MEDS ORDERED: ONDANSETRON *ODT* 4 MG TABLET SL ONE (13:22)
--- NOTE | 2019-04-23 13:22 | PDOC ---
History of Present Illness - General Chief Complaint: Pain Stated Complaint: LOWER ABDOMINAL PAIN 16 WEEKS Time Seen by Provider: 04/23/19 12:59 History Source: Patient Exam Limitations: No Limitations Past History - Past Medical History Allergies/Adverse Reactions: Allergies Allergy/AdvReac Type Severity Reaction Status Date / Time No Known Allergies Allergy Verified 02/09/19 14:17 Home Medications: Ambulatory Orders Azithromycin 1 gm PO ONCE #1 packet 09/29/18 Doxylamine Succinate/Vit B6 [Sharona Leyva 10-10 mg Tablet] 1 each PO ACHS #14 tablet. 02/09/19 Cephalexin Monohydrate [Keflex -] 500 mg PO BID #20 capsule 03/04/19 Asthma: Yes COPD: No - Reproductive History (#): 3 Para: 2 Cervical CA: No Dysfunctional Uterine Bleeding: No Ectopic : No Endometrial CA: No Polycystic Ovaries: No Spontaneous : 0 - Immunization History Td Vaccination: Yes Immunization Up to Date: Yes - Psycho Social/Smoking Cessation Hx Smoking Status: Yes Smoking History: Never smoked Have you smoked in the past 12 months: No Number of Cigarettes Smoked Daily: 5 If you are a former smoker, when did you quit?: 12/30 Information on smoking cessation initiated: No Hx Alcohol Use: No Drug/Substance Use Hx: No Review of Systems - Review of Systems Able to Perform ROS?: Yes Is the patient limited Uzbek proficient: No *Physical Exam - Vital Signs Last Vital Signs Temp Pulse Resp BP Pulse Ox 97.9 F 86 16 117/79 100 04/23/19 12:15 04/23/19 12:15 04/23/19 12:15 04/23/19 12:15 04/23/19 12:15 Medical Decision Making - Medical Decision Making 04/23/19 13:21 HPI: 28F 16wks presenting w/ 1 week of suprapubic abdominal pressure that was worse today. Endorses feeling nauseated and vomiting x1 this AM. Constant pressure, nonradiating, improves w/ warm bath. Otherwise denies f/c, vaginal discharge, vaginal bleeding, dysuria, frequency. No recent abx. Has regular CLINICAL LAW PROFESSOR care. PMH asthma MED albuterol SULAIMAN Hendrix ROS: CONSTITUTIONAL: Denies F / C / Edema RESP: Denies SOB CARD: Denies chest pain GI: Denies N / V / D, inability to tolerate PO : Denies dysuria PE: VS reviewed, afebrile GEN: Well appearing, NAD. AAOx3 HEENT: NC/AT, EOMI, PERRLA. No facial asymmetry. Moist mucous membranes. Normal voice. Supple neck w/ FROM. CV: S1/S2, RRR, no m/r/g LUNG: CTAB, no wheezes, crackles, rales, rhonchi. GI: Gravid, soft, nt, +BS, no guarding, no rebound. Neg CVAT b/l. EXTREMITIES: 2+ distal pulses. No LE edema. No obvious deformities of all extremities. SKIN: warm, dry, normal turgor PSYCH: reserved, poor eye contact, spartan responses NEURO: Moving all extremities well. Pelvic: No discharge, bleeding, lesions and atrophy on inspection. Cervical os visualized and closed with thick white discharge. No blood in vault. Neg CMT on bimanual exam but there was mild right adnexal tenderness. MDM: 28F 16w w/ 1 week of abdominal pressure worse today. Pelvic exam found thick white discharge (questionable whether physiologic or not) and mild right adnexal tenderness. 2nd trimester abdominal pressure DDx - round ligament pain, concern for possible PID will eval for infectious causes - UA, UC, Gn/Ch - TVUS - CBC, CMP - contact OBGYN re: findings and next steps 04/23/19 14:30 Discussed patient w/ Dr. Stevens On-Call CLINICAL LAW PROFESSOR for Ratna Simeon's office Will reach out once CBC, CMP, and US results back 04/23/19 15:22 Went to reassess patient but patient not in room or ED area RN reports she has not seen patient US suite called reporting no patients there Patient may have eloped 04/23/19 15:26 Called number listed in patient chart and was told "you do not have the right number." // Eloped Discharge - Discharge Information Problems reviewed: Yes Clinical Impression/Diagnosis: Abdominal pressure, Eloped from emergency department Condition: Unchanged/Unknown Disposition: ELOPED - Follow up/Referral Referrals: Elli Michel [Primary Care Provider] - - Patient Discharge Instructions - Post Discharge Activity
--- NOTE | 2019-04-23 13:39 | PDOC ---
Documentation entered by Lisa Villarreal SCRIBE, acting as scribe for Cade Mccullough MD. Cade Mccullough MD: This documentation has been prepared by the Cherelle escobar Adrianna, SCRIBE, under my direction and personally reviewed by me in its entirety. I confirm that the documentation accurately reflects all work, treatment, procedures, and medical decision making performed by me. Attending Attestation - Resident Resident Name: Blaine Charles - ED Attending Attestation I have performed the following: I have examined & evaluated the patient, The case was reviewed & discussed with the resident, I agree w/resident's findings & plan, Exceptions are as noted - HPI HPI: The patient is a 28 year old female, (currently at 16 weeks gestation), who presents to the ED for evaluation of abdominal pain. Pt reports 1 week of suprapubic pain. States it is chronic, non-radiating. Denies any N/V. Denies F/ C. Denies dysuria. Denies flank pain. Pt has had 2 prior US confirming IUP. 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 Allergies: NKA, NKDA Surgical History: None reported Social History: Recently stopped smoking. Denies any other toxic habits. PCP: Dr. Michel - Physicial Exam PE: GENERAL: Awake, alert, and fully oriented, in no acute distress. HEAD: No signs of trauma EYES: PERRLA, EOMI, sclera anicteric, conjunctiva clear ENT: Auricles normal inspection, hearing grossly normal, nares patent, oropharynx clear without exudates. Moist mucosa NECK: Nontender, no stepoffs, Normal ROM, supple, no lymphadenopathy, JVD, or masses LUNGS: Breath sounds equal, clear to auscultation bilaterally. No wheezes, and no crackles HEART: Regular rate and rhythm, normal S1 and S2, no murmurs, rubs or gallops ABDOMEN: Soft, nontender, normoactive bowel sounds. No guarding, no rebound. No masses EXTREMITIES: Normal range of motion, no edema. No clubbing or cyanosis. No cords, erythema, or tenderness NEUROLOGICAL: Cranial nerves II through XII intact. 5/5 strength and sensation in all extremities, Normal speech, normal gait, normal cerebellar function SKIN: Warm, Dry, normal turgor, no rashes or lesions noted. : + copious white discharge, no CMT - Medical Decision Making 04/23/19 13:37 28 F with 1 week of suprapubic pain. Abdominal exam completely benign. No tenderness elicited. However, pt with copious white vaginal discharge. No CMT but consider PID. No clinical signs of appendicitis/cholecystitis or other abdominal emergency. Pt has had 2 prior US that confirmed IUP. Pain is not cramp-like and not associated with discharge/bleeding, making miscarriage unlikely. - Labs, UA, UCx - GC/CT - Tylenol - Discuss with pt's OB, Dr. Hendrix 04/23/19 14:[address] Stevens, accounting consultant for Dr. Hendrix. Given lack of CMT, unlikely PID. Recommends labs and US. 04/23/19 15:22 Pt could not be found in her bed, likely eloped Attempted to call pt's phone number, with no response. Pt did not have IV in place. Labs and US were not obtained.
[2019-04-23] MEDS ORDERED: ONDANSETRON *ODT* 4 MG TABLET ONE (13:45)
[2019-04-23] MEDS ORDERED: ACETAMINOPHEN 325 MG TABLET (FP) ONE (13:45)
== END 2019-04-23 14:30 | disposition left against medical advice (07) ==
LOC: JER 12:15
DX: O26.892 Other specified pregnancy related conditions, second trimester (principal); R10.30 Lower abdominal pain, unspecified; Z3A.16 16 weeks gestation of pregnancy
CPT/HCPCS: 99281-25; Q0162

== ENCOUNTER 2019-06-30 20:53 | Emergency (ER) | payer OTHER ==
[2019-06-30 21:01] VITALS: BP 108/66; PULSE 97; TEMP 97.6; BMI 37.3
--- NOTE | 2019-06-30 21:08 | PDOC ---
Rapid Medical Evaluation Time Seen by Provider: 06/30/19 20:55 Medical Evaluation: Allergies Allergy/AdvReac Type Severity Reaction Status Date / Time No Known Allergies Allergy Verified 02/09/19 14:17 06/30/19 20:56 I have performed a brief in-person evaluation of this patient. The patient presents with a chief complaint of: Severe lower abd cramps tonight. 27 weeks by dates, , f/u w/ Ratna Hendrix Pertinent physical exam findings:vane uncomfortable but stable I have ordered the following:nothing The patient will proceed to the ED for further evaluation. Discharge Disposition - Diagnosis Abdominal pain affecting - Referrals - Patient Instructions - Post Discharge Activity
== END 2019-06-30 23:55 | disposition home or self-care (01) ==
LOC: JER 20:53
DX: O26.892 Other specified pregnancy related conditions, second trimester (principal); R10.30 Lower abdominal pain, unspecified; Z3A.27 27 weeks gestation of pregnancy
CPT/HCPCS: 99281-25

== ENCOUNTER → 2020-04-19 | Emergency (ER) | payer OTHER ==
[2020-04-19 17:09] VITALS: BP 112/73; PULSE 85; TEMP 98.2; BMI 37.7
== END ==
LOC: JER 16:59
DX: R10.9 Unspecified abdominal pain (principal)
CPT/HCPCS: 99281-25

== ENCOUNTER 2020-08-25 11:34 | Emergency (ER) | payer OTHER ==
[2020-08-25 12:02] VITALS: BP 107/63; PULSE 89; TEMP 97.9; BMI 38.9
== END 2020-08-25 12:00 | disposition left against medical advice (07) ==
LOC: JER 11:34
DX: O26.892 Other specified pregnancy related conditions, second trimester (principal); R10.30 Lower abdominal pain, unspecified; Z3A.25 25 weeks gestation of pregnancy
CPT/HCPCS: 99283-25

== ENCOUNTER 2020-10-05 02:39 | Emergency (ER) | payer OTHER ==
[2020-10-05] MEDS ORDERED: ACETAMINOPHEN 325 MG TABLET (FP) PO ONE (02:48)
[2020-10-05 02:53] VITALS: BMI 37.9
[2020-10-05 03:30] VITALS: BP 108/73; PULSE 91; TEMP 98
== END 2020-10-05 05:11 | disposition home or self-care (01) ==
LOC: JER 02:39
DX: O26.893 Other specified pregnancy related conditions, third trimester (principal); K08.89 Other specified disorders of teeth and supporting structures; R10.84 Generalized abdominal pain; Z3A.28 28 weeks gestation of pregnancy
CPT/HCPCS: 99283-25

== ENCOUNTER 2022-04-25 12:19 | Emergency (ER) | payer OTHER ==
[2022-04-25 12:32] VITALS: TEMP 97.1; BMI 26.7
[2022-04-25] MEDS ORDERED: ACETAMINOPHEN 500 MG TABLET (FP) PO ONE (13:14)
[2022-04-25] MEDS ORDERED: ACETAMINOPHEN 500 MG TABLET (FP) ONE (13:43)
[2022-04-25 14:35] LABS: BASO % 1.1 % (0-2.0); EOS % 2.2 % (0-4.5); HEMATOCRIT 36.7 % (32.4-45.2); HEMOGLOBIN 12.4 GM/dL (10.7-15.3); LYMPH % 43.3 % (8-40); MCH 29.3 pg (25.7-33.7); MCHC 33.8 g/dl (32.0-36.0); MEAN CELL VOLUME 86.9 fl (80-96); MEAN PLT VOLUME 6.8 fl (7.5-11.1); MONO % 6.6 % (3.8-10.2); NEUT % 46.8 % (42.8-82.8); PLATELET COUNT 404 10^3/uL (134-434); RBC 4.22 M/mm3 (3.60-5.2); RDW 14.2 % (11.6-15.6); WHITE BLOOD COUNT 6.8 K/mm3 (4.0-10.0)
[2022-04-25 14:58] LABS: CALCIUM 9.2 mg/dL (8.5-10.1)
[2022-04-25 15:00] LABS: BLOOD UREA NITROGEN 4.4 mg/dL (7-18)
[2022-04-25 15:02] LABS: CREATININE 0.6 mg/dL (0.55-1.3)
[2022-04-25 15:04] LABS: HCG,QUALITATIVE URINE Positive
[2022-04-25 15:08] LABS: EPI CELLS >36 /uL (0-25.1); HYALINE CASTS 14 /uL (0-3.1); URINE APPEARANCE CLEAR; URINE BACTERIA 42 /uL (0-1359); URINE BILIRUBIN NEGATIVE (NEGATIVE); URINE COLOR YELLOW; URINE GLUCOSE (UA) NEGATIVE (NEGATIVE); URINE KETONE TRACE (NEGATIVE); URINE LEUK ESTERASE 2+ (NEGATIVE); URINE NITRITE NEGATIVE (NEGATIVE); URINE PROTEIN TRACE (NEGATIVE); URINE RBC 12 /uL (0-23.9); URINE WBC 294 /uL (0-25.8)
[2022-04-25] MEDS ORDERED: morphine CARPU-JECT 2 MG/1 ML DISP.SYRIN IM ONE (15:57)
[2022-04-25 17:51] VITALS: BP 115/77; PULSE 85; RESP 20
== END 2022-04-25 17:52 | disposition home or self-care (01) ==
LOC: JER 12:19
PROC: 3E023NZ Introduction of Analgesics, Hypnotics, Sedatives into Muscle, Percutaneous Approach (ICD-10-PCS; principal; 2022-04-25)
DX: O26.851 Spotting complicating pregnancy, first trimester (principal); O23.41 Unspecified infection of urinary tract in pregnancy, first trimester; Z3A.01 Less than 8 weeks gestation of pregnancy
CPT/HCPCS: 36415; 76817-TC; 80048; 81003; 84702; 84703; 85025; 86850; 86900; 86901; 87086; 99284-25

== ENCOUNTER 2022-05-12 06:28 | Emergency (ER) | payer OTHER ==
[2022-05-12 06:53] VITALS: BP 107/69; PULSE 78; RESP 17; TEMP 98.8; BMI 26.4
[2022-05-12] MEDS ORDERED: ACETAMINOPHEN 500 MG TABLET (FP) PO ONE (07:30)
[2022-05-12] MEDS ORDERED: ACETAMINOPHEN 325 MG TABLET (FP) ONE (07:38)
[2022-05-12] MEDS ORDERED: ONDANSETRON 4 MG/2 ML VIAL IVPUSH ONE (07:39)
[2022-05-12] MEDS ORDERED: ONDANSETRON 4 MG/2 ML VIAL ONE (07:59)
[2022-05-12 08:30] LABS: BASO % 0.8 % (0-2.0); HEMATOCRIT 36.4 % (32.4-45.2); LYMPH % 40.6 % (8-40); MCH 28.5 pg (25.7-33.7); MCHC 32.9 g/dl (32.0-36.0); MEAN CELL VOLUME 86.7 fl (80-96); MEAN PLT VOLUME 7.2 fl (7.5-11.1); MONO % 8.3 % (3.8-10.2); NEUT % 48.3 % (42.8-82.8); PLATELET COUNT 384 10^3/uL (134-434); RDW 13.7 % (11.6-15.6)
[2022-05-12 08:32] LABS: EPI CELLS >36 /uL (0-25.1); HYALINE CASTS 17 /uL (0-3.1); URINE APPEARANCE CLOUDY; URINE BACTERIA 1229 /uL (0-1359); URINE BILIRUBIN NEGATIVE (NEGATIVE); URINE COLOR DK YELLOW; URINE GLUCOSE (UA) NEGATIVE (NEGATIVE); URINE KETONE TRACE (NEGATIVE); URINE LEUK ESTERASE 2+ (NEGATIVE); URINE NITRITE NEGATIVE (NEGATIVE); URINE PROTEIN TRACE (NEGATIVE); URINE RBC 10 /uL (0-23.9); URINE UROBILINOGEN 0.2 mg/dL (0.2-1.0); URINE WBC 410 /uL (0-25.8)
[2022-05-12 08:44] LABS: CALCIUM 9.3 mg/dL (8.5-10.1)
[2022-05-12 08:45] LABS: ALBUMIN 4.1 g/dl (3.4-5.0); BLOOD UREA NITROGEN 6.6 mg/dL (7-18)
[2022-05-12 08:48] LABS: CREATININE 0.6 mg/dL (0.55-1.3)
[2022-05-12 08:49] LABS: BILIRUBIN,TOTAL 0.4 mg/dL (0.2-1); TOT PROT 7.4 g/dl (6.4-8.2)
[2022-05-12] MEDS ORDERED: NITROFURANTOIN MACROCRYSTAL 50 MG CAPSULE (FP) PO SCH (09:00)
[2022-05-12] MEDS ORDERED: NITROFURANTOIN MACROCRYSTAL 50 MG CAPSULE (FP) PO ONE (09:00)
[2022-05-12] MEDS ORDERED: NITROFURANTOIN MACROCRYSTAL 50 MG CAPSULE (FP) ONE (09:14)
== END 2022-05-12 11:06 | disposition home or self-care (01) ==
LOC: JER 06:28
PROC: 3E033NZ Introduction of Analgesics, Hypnotics, Sedatives into Peripheral Vein, Percutaneous Approach (ICD-10-PCS; principal; 2022-05-12)
DX: O23.41 Unspecified infection of urinary tract in pregnancy, first trimester (principal); Z3A.01 Less than 8 weeks gestation of pregnancy
CPT/HCPCS: 36415; 76817-TC; 80053; 81003; 84702; 85025; 86850; 86900; 86901; 87086; 99284-25

== ENCOUNTER 2022-06-09 14:55 | Emergency (ER) | payer OTHER ==
[2022-06-09 15:44] VITALS: BP 105/72; PULSE 75; RESP 20; TEMP 97.9; BMI 30.1
[2022-06-09 16:11] LABS: HEMOGLOBIN 10.4 G/dL (10.7-15.3); MCH 29.3 pg (25.7-33.7); MCHC 33.4 g/dl (32.0-36.0); MEAN CELL VOLUME 87.8 fl (80-96); MEAN PLT VOLUME 6.6 fl (7.5-11.1); PLATELET COUNT 349.8 10^3/uL (134-434); RBC 3.53 10^6/uL (3.60-5.2); RDW 14.5 % (11.6-15.6); WHITE BLOOD COUNT 8.4 10^3/uL (4.0-10.8)
[2022-06-09 16:28] LABS: EPITHELIAL CELLS MODERATE /hpf
== END 2022-06-09 18:18 | disposition home or self-care (01) ==
LOC: FER 14:55
DX: O23.41 Unspecified infection of urinary tract in pregnancy, first trimester (principal)
CPT/HCPCS: 36415; 76801-TC; 81003; 81015; 84702; 85027; 99284-25

== ENCOUNTER 2022-11-16 05:05 | Inpatient (IN) | payer OTHER ==
[2022-11-16] MEDS ORDERED: NIFEdipine 10 MG CAPSULE (FP) PO SCH (06:30)
[2022-11-16] MEDS ORDERED: LACTATED RINGERS SOLUTION 1,000 ML/1,000 ML INFUS.BAG IV STA (06:50)
[2022-11-16] MEDS ORDERED: LACTATED RINGERS SOLUTION 1,000 ML/1,000 ML INFUS.BAG IV SCH (07:00)
[2022-11-16] MEDS ORDERED: ONDANSETRON 4 MG/2 ML VIAL IVPB PRN (07:01)
[2022-11-16 07:11] LABS: BASO % 0.3 % (0-2.0); EOS % 1.5 % (0-4.5); HEMATOCRIT 27.9 % (32.4-45.2); HEMOGLOBIN 9.5 GM/dL (10.7-15.3); LYMPH % 24.6 % (8-40); MCH 28.9 pg (25.7-33.7); MCHC 34.1 g/dl (32.0-36.0); MEAN CELL VOLUME 84.7 fl (80-96); MEAN PLT VOLUME 6.7 fl (7.5-11.1); MONO % 8.4 % (3.8-10.2); NEUT % 65.2 % (42.8-82.8); PLATELET COUNT 384 10^3/uL (134-434); RBC 3.29 M/mm3 (3.60-5.2); RDW 13.9 % (11.6-15.6); WHITE BLOOD COUNT 11.5 K/mm3 (4.0-10.0)
[2022-11-16 07:28] LABS: CALCIUM 8.3 mg/dL (8.5-10.1)
[2022-11-16 07:29] LABS: ALBUMIN 2.5 g/dl (3.4-5.0); BLOOD UREA NITROGEN 7.7 mg/dL (7-18)
[2022-11-16 07:32] LABS: CREATININE 0.5 mg/dL (0.55-1.3)
[2022-11-16 07:34] LABS: BILIRUBIN,TOTAL 0.2 mg/dL (0.2-1); TOT PROT 5.8 g/dl (6.4-8.2)
[2022-11-16 10:13] VITALS: BP 115/69; PULSE 76; RESP 16; TEMP 98.3; BMI 31.8
== END 2022-11-16 10:10 | disposition short-term general hospital (02) | DRG 563 ==
LOC: JDEL 05:05 → JLDR 09:05
PROVIDERS: ADMIT Obstetrics & Gynecology; ATTEND Obstetrics & Gynecology
DX: O60.03 Preterm labor without delivery, third trimester (principal); O24.410 Gestational diabetes mellitus in pregnancy, diet controlled; O98.113 Syphilis complicating pregnancy, third trimester; A53.9 Syphilis, unspecified; Z3A.33 33 weeks gestation of pregnancy; R11.2 Nausea with vomiting, unspecified
CPT/HCPCS: 36415; 59025; 80053; 85025